=== PATIENT | female | born 1975 | race African-American/Black ===

== ENCOUNTER 2023-11-29 10:17 | Day surgery (SDC) | payer OTHER ==
[2023-11-23 13:44] VITALS: BMI 28.8
[2023-11-29 15:56] VITALS: TEMP 97.3
[2023-11-29 16:02] VITALS: BP 120/62; PULSE 65; RESP 16
== END 2023-11-29 12:15 | disposition home or self-care (01) ==
LOC: FASU-ENDO 10:17
PROVIDERS: ATTEND Internal Medicine Gastroenterology
PROC: 0DBN8ZX Excision of Sigmoid Colon, Via Natural or Artificial Opening Endoscopic, Diagnostic (ICD-10-PCS; principal; 2023-11-29 11:16)
DX: Z12.11 Encounter for screening for malignant neoplasm of colon (principal); K63.5 Polyp of colon; K64.1 Second degree hemorrhoids
CPT/HCPCS: 81025; 88305-TC